=== PATIENT | female | born 1965 | race Two or more races ===

== ENCOUNTER 2025-02-08 07:57 | Emergency (ER) | payer MEDICAID, SELFPAY ==
[2025-02-08 08:12] VITALS: BP 133/97; PULSE 110; RESP 18; TEMP 36.7; O2SAT 97; BMI 25.7
--- NOTE | 2025-02-08 08:13 | XR_ITS ---
Examination: Shoulder,left, 3 views Technique: Shoulder AP internal rotation, AP external rotation, Y view shoulder, 3 views Exam date and time :February 08, 2025 0852 hours INDICATIONS: Patient fell 2 days ago with injury to the shoulder, shoulder pain. FINDINGS: 6 mm AC joint separation No shoulder fracture or dislocation Moderate narrowing glenohumeral joint Mild calcific tendinitis IMPRESSION: 6 mm AC joint separation
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
[2025-02-08] MEDS: KETOROLAC INJ 60 MG/2 ML VIAL 30 MG IM (08:54)
[2025-02-08 10:44] VITALS: BP 124/78; PULSE 88
== END 2025-02-08 10:44 | disposition home or self-care (01) ==
PROVIDERS: Emergency Provider Family Medicine
DX: S43.402A Unspecified sprain of left shoulder joint, initial encounter (principal); W06.XXXA Fall from bed, initial encounter
CPT/HCPCS: 73030; 96372; 99283; A4565; J1885